=== PATIENT | female | born 1960 | race Caucasian/White ===

== ENCOUNTER 2018-09-12 08:25 | Day surgery (SDC) | payer MEDICARE, MEDICAID, SELFPAY ==
[2018-09-12] VITALS (7 sets, daily range): BP systolic 78–111; BP diastolic 41–72; PULSE 60–74; RESP 16; TEMP 36.1–36.8; O2SAT 93–98; BMI 42.9
--- NOTE | 2018-09-12 09:28 | HP.PCM_ITS ---
History of Present Illness Date of Admission: 09/12/18 The patient is a 58 year old F who presents for screening colonoscopy. Past Medical/Surgical History - Planned Operation Planned Operative Procedure/s: COLONOSCOPY Date of Operative Procedure: 09/12/18 Permit Signed: Yes S.O.S: No Is This Patient Having a Total Joint: No - Previous Hospitalizations/Surgeries HX Hospitalizations: No HX of Surgeries: HERNIA. JUDY THR. JUDY TKR. ANKLE Any Problems With Anesthesia: No You/Your Family Experience Fever (Hyperthermia) With Anes: No Cholinesterase deficiency: No - Cardiovascular Hx Chest Pain within Last 2 months: No Hx of Irregular Heartbeat and/or Afib: No Hx Heart Attack: No Hx Congestive Heart Failure: No Hx Rheumatic Fever: No Hx Hypertension: No Hx Internal Defibrillator: No Hx Pacemaker: No Hx Cardiac Catheterization: No Hx Cardiac Surgery/Stents/Etc.: No Hx Stress Test: No HX Edema: No Hx Pain in Legs when Walking/Leg Cramps: No - Respiratory Chronic Cough: No HX of Shortness of Breath: Yes Hoarseness: No Hx Chronic Obstructive Pulmonary Disease (COPD): No Hx Asthma: No Hx Emphysema: No Hx Sleep Apnea: Yes CPAP: Yes BIPAP: No Hx Oxygen Use at Home: No Hx Respiratory Tract Infection/Cold (presently): No Result (for STOP score): Positive Hx Smoking: Yes Smoking Status: Former smoker - Gastrointestinal Hx Gastroesophageal Reflux: Yes Controlled With Meds: Yes Hx Gastrointestinal Disorders: Yes - IBS Hx Gastrointestinal Bleed: No Hx Ulcer: No Hx Hiatal Hernia: No Difficulty Chewing/Swallowing: No Recent Onset of Swallowing Problems: No Special diet followed at home: No Hx Unplanned Weight Loss of 20#: No HX Unplanned Weight Gain of 20#: No - Neurological Hx Seizures: No HX Syncope/Blackout Spells/Unconsciousness: No Hx CVA/Stroke: Yes - 2005 Hx Transient Ischemic Attacks (TIA): Yes Hx Multiple Sclerosis: No Hx Parkinson's Disease: No Hx Head/Neck Injury: No Hx Headaches: No Hx Back Injury/Pain: No Recent Onset of Speech Difficulty: No Restless Legs: No Does patient have nerve stimulator: No - Blood Disorder Hx Leukemia: No Bleeding Tendencies: No Hx Deep Vein Thrombosis: No Hx High Cholesterol: No Blood Transmitted Disease: No Hx Hepatitis: No Hx Cirrhosis: No Hx Anemia: No Hx Blood Disorders: No - Reproduction : No Is Patient Lactating: No Hx Hysterectomy: No Hx Tubal Ligation: No Are You Post Menopause: Yes - Genitourinary Hx Renal Disease: No - Musculoskeletal Hx Arthritis: Yes - OA Hx Rheumatoid Arthritis: No Hx Gout: No Recent Onset of an Orthopedic Problem: No - Endocrine Hx Diabetes: No Thyroid Disease: No Hx Steroid Therapy: No - Psycho/Social Hx Substance Use: No Hx Alcohol Use: Yes - SOCIAL Hx Anxiety: Yes Hx Depression: No Mental Illness: No Hx Dementia: No - Miscellaneous Hx Cancer: No Recent Exposure to Contagious Disease: No Active MRSA: No Hx of C-Diff: No Any Loose Teeth: Yes - FULL SET DENTURES Allergies No Known Allergies Allergy (Verified 09/06/18 11:41) - Discharge Is Pt Admitted From a Long Term, or a Long Term: No Who Could Help: After D/C, Where Do you Plan to Go: Return Home - Physical Exam General: Alert, Oriented x3 Lungs: Clear to auscultation Cardiovascular: Regular rate, Regular Rhythm, No murmurs Abdomen: Bowel Sounds Present, Soft, Non Tender, Non-Distended Vital Signs Temp Pulse Resp BP Pulse Ox 97.2 F L 65 16 111/72 96 09/12/18 08:51 09/12/18 08:51 09/12/18 08:51 09/12/18 08:51 09/12/18 08:51 Oxygen Delivery Method Room Air Weight: 250 lb 0.067 oz Body Mass Index (BMI) 42.9 Assessment/Plan Plan will be to perform a colonoscopy. Surgery Risks - Colonoscopy Risks Include but are not Limited To: Risks include but are not limited to: Bleeding, perforation requiring further surgery, inability to complete colonoscopy requiring barium enema.
--- NOTE | 2018-09-12 09:30 | COLBX_PTH ---
PATIENT: BRUNO CARDONA LOC: EN U#:[id number] AGE/SX: 58/F ROOM: RE09/12/[address]: Dr. Wei Santacruz MD : 1960 BED: DIS: 09/12/2018 SPEC #: [id number] RECD: 09/12/18 10:10 STATUS: PASCUAL CHELSEA #: [id number] REX: 09/12/18 09:[address]: Wei Santacruz DEPT: SURGICAL PATHOLOGY RECD BY: Earl Guajardo ENTERED: 09/12/18 10:59 SP TYPE: COLON BX OTHR DR: Dr. Tyson Mandujano DO Tissues: Cecum, NOS Procedures: Surgery Specimen Level IV HEADER OPERATION: Colonoscopy - open access (MAC) PRE-OP DIAGNOSIS: Screening TISSUE SUBMITTED: Cecum biopsy MICROSCOPIC DIAGNOSIS Cecum polyp, biopsy: Tubular adenoma. CE:iris 09/13/18 MICROSCOPIC DESCRIPTION Slides are reviewed. GROSS DESCRIPTION Received in fixative is one container labeled with the patient's name and designated cecum polyp. The specimen consists of multiple irregular fragments of reddish-pink soft tissue and clotted blood that in aggregate measure 0.7 x 0.5 x 0.1 cm. The specimen is totally submitted in one cassette. / CE:iris 09/12/18 TC:1 CPT: 95416
--- NOTE | 2018-09-12 09:51 | OP.ENDO_ITS ---
09/12/2018 Tyson Mandujano [address] [place] [address] Re : Colonoscopy procedure for Nevin Sprague Dear Dr. Mandujano This procedure was performed on Wednesday, September 12, 2018. My impressions and recommendations are as follows: Impressions : - One 5 mm polyp in the cecum, removed with a hot snare. Resected and retrieved. - Diverticulosis in the sigmoid colon and in the descending colon. No specimens collected. - Non-bleeding internal hemorrhoids. - The examination was otherwise normal. Recommendations : - Discharge patient to home. - Resume previous diet. - Continue present medications. - Await pathology results. - Repeat colonoscopy in 3 years for surveillance. - Return to my office in 1 week. My findings are described in the full procedure note, which is enclosed. If I can be of further assistance, please feel free to contact me at Doctor phone number(s): , Fax: [phone], Work: . Sincerely, MD Wei Herrera MD 09/12/2018 9:51:50 AM This report has been signed electronically.
== END 2018-09-12 10:43 | disposition home or self-care (01) ==
LOC: EN 08:27 → AC 08:29
PROVIDERS: Family Provider Preventive Medicine Occupational Medicine; PCP Preventive Medicine Occupational Medicine; Referring Provider Surgery; Visit Provider Surgery
PROC: 0DJD8ZZ Inspection of Lower Intestinal Tract, Via Natural or Artificial Opening Endoscopic (ICD-10-PCS; CPT 45378; principal; 2018-09-12 09:25)
DX: Z12.11 Encounter for screening for malignant neoplasm of colon (principal); D12.0 Benign neoplasm of cecum; K57.30 Diverticulosis of large intestine without perforation or abscess without bleeding; K64.8 Other hemorrhoids; K58.9 Irritable bowel syndrome, unspecified; K21.9 Gastro-esophageal reflux disease without esophagitis; F41.9 Anxiety disorder, unspecified; Z78.0 Asymptomatic menopausal state; Z79.899 Other long term (current) drug therapy; Z86.73 Personal history of transient ischemic attack (TIA), and cerebral infarction without residual deficits
CPT/HCPCS: 45385; 88305; J7120; J1610

== ENCOUNTER 2019-04-02 16:38 | Emergency (ER) | payer MEDICARE, MEDICAID, SELFPAY ==
[2018-09-12 08:51] VITALS: BMI 42.9
[2019-04-02 16:39] VITALS: BP 129/71; PULSE 60; RESP 16; TEMP 36.3; O2SAT 96; BMI 44.2
--- NOTE | 2019-04-02 17:04 | ED.VIS.GEN ---
History of Present Illness Chief Complaint: Lower Extremity Injury Informant: Patient Onset: Today Context: Sudden Onset Timing: Intermittent Quality: Pain Location: Left knee Current Severity: - - Presently none Maximum Severity: Severe Worsened by: Weightbearing Relieved by: Nonweightbearing Associated Symptoms: No associated symptoms Narrative: Patient is 58-year-old woman status post bilateral total hip arthroplasty and bilateral total knee arthroplasty who presents with atraumatic left knee pain. She states was going on the carpet when she attempted place weight she had severe pain and was unable to bear weight. She states is able to extend and flex her knee. There is no history of gout or pseudogout. Surgery was performed by orthopedic surgeon in [place] in 2013. She denies any constitutional symptoms. She has no other complaints Prior similar symptoms: No Recent Illness/Hospitalization: No Past Medical History - Allergies and Home Meds Allergies/Adverse Reactions: Allergies No Known Allergies Allergy (Verified 04/02/19 16:39) Primary Care Physician: Tyson Mandujano DO [Primary Care Provider] - Prior records reviewed: No Surgical History: - - Right and left total hip arthroplasty and right and left total knee arthroplasty Lives: Spouse/ Significant Other Smoking Status: Former smoker Alcohol: None Drugs: None Review of Systems General: Denies: Chills, Fever, Malaise, Subjective Musculoskeletal: Reports: Extremity Pain. Denies: Myalgias, Arthralgias, Neck pain, Back pain, Swelling Skin: Denies: Rash, Wounds Neurological: Denies: Weakness, Parasthesia, Numbness Hematologic: Denies: Easy bruising, Easy bleeding Physical Exam Vital Signs/Narrative: Vital Signs Temp Pulse Resp BP Pulse Ox 04/02/19 16:39 97.3 F L 60 16 129/71 H 96 Inital Vital Signs reviewed: Yes General: Well nourished, Well developed, Obese, No Acute Distress Head: Normocephalic, Atraumatic. Negative for: Trauma, Tenderness Eyes: Perrl, EOMI. Negative for: Pale conjunctiva, Scleral icterus Neck: Supple, Nontender, No lymphadenopathy, No JVD Cardiovascular: Regular rate, Regular rhythm, No murmurs, Normal S1, Normal S2 Respiratory: No distress, CTA bilaterally, Chest nontender Abdomen: Soft, Nontender, Nondistended, Normal bowel sounds Back: Nontender, Normal Inspection Extremities: Nontender, No edema, - - Able to extend to 180 degrees and flex to 80 degrees. There is no significant laxity with varus valgus stress testing. Patella is not ballotable. There is no effusion. There is no erythema of the skin. Skin: Normal color, No rash, No Trauma. Negative for: Cyanosis, Diaphoresis, Jaundice Neurological: Alert, Oriented x3, Cranial nerves II-XII grossly intact, Normal Strength, Normal Sensation Diagnostic/Tx/Re-eval Chest X-Ray - ED: Read by ED Physician, - - 4 view x-ray of the left knee was obtained. Prosthesis is in proper position. There is no effusion. There is no acute findings. - Medical Decision Making Exposure was obtained to evaluate prosthetic. She was medicated with one [place] tablet. ED Disposition - Plan for ED Patient: Disposition: Home or Assisted Living Diagnosis: Left knee pain Instructions: PAIN, Uncertain Cause (Acute) Referrals: Tyson Mandujano DO [Primary Care Provider] - 3-5 Days if not improving Eric Marie DO [STAFF PHYSICIAN] - 1 Week if not improving
[2019-04-02] MEDS: HYDROcodone Bitartrate/Apap 5/325 Tablet PO (17:20)
--- NOTE | 2019-04-02 17:20 | RAD_ITS ---
STUDY: X-RAY - LEFT KNEE REASON FOR EXAM: Female, 58 years old. left knee injury, pain TECHNIQUE: 4 view(s) of the knee. COMPARISON: None. FINDINGS: Knee prosthesis is present in anatomic alignment and position. No evidence for acute fracture or subluxation. No definitive evidence for loosening of the prosthesis. RAD/Knee 4 or More Views IMPRESSION: Stable appearance to left knee prosthesis Electronically Signed: Hank Lepe MD at 17:39 EST , Service support ,
== END 2019-04-02 17:45 | disposition home or self-care (01) ==
PROVIDERS: Emergency Provider Emergency Medicine; Family Provider Preventive Medicine Occupational Medicine; PCP Preventive Medicine Occupational Medicine
DX: M25.562 Pain in left knee (principal); Z79.899 Other long term (current) drug therapy; Z87.891 Personal history of nicotine dependence; Z96.643 Presence of artificial hip joint, bilateral
CPT/HCPCS: 73564; 99282

== ENCOUNTER 2019-04-17 11:06 | Day surgery (SDC) | payer MEDICARE, MEDICAID, SELFPAY ==
--- NOTE | 2019-04-12 14:14 | EKG12_ITS ---
Test Reason : PREOP Blood Pressure : / mmHG Vent. Rate : 051 BPM Atrial Rate : 051 BPM P-R Int : 144 ms QRS Dur : 094 ms QT Int : 434 ms P-R-T Axes : 059 030 063 degrees QTc Int : 400 ms Sinus bradycardia Otherwise normal ECG Confirmed by SHIRAZ TORRES, RENEE ([id number]), editor continuity and script MARTHA VAZQUEZ ([id number]) on 04/16/2019 11:31:19 AM Referred By: Yefri Sharma Confirmed By:RENEE WELDON MD
[2019-04-12 14:35] LABS: Hematocrit 41.1 % (37-47); Hemoglobin 13.5 g/dL (12.0-15.0); Mean Corp Hgb Conc 32.8 g/dL (32-36); Mean Corpuscular Hgb 29.3 pg (27.0-32.0); Mean Corpuscular Volume 89.3 fL (81-99); Mean Platelet Vol. 9.2 fl (6.2-12.0); Platelet Count 308 K/mm3 (150-450); RBC Distribution Width CV 12.1 % (11.6-14.6); RBC Distribution Width SD 39.3 fl (35.1-43.9)
[2019-04-12 14:50] LABS: Partial Thromboplast Time 25.7 Seconds (24.1-36.2); Prothrombin Time (Protime)PT. 12.9 SECONDS (11.7-14.9)
[2019-04-12 14:59] LABS: AST(SGOT) 10 U/L (15-37); Alanine Aminotransfer ALT/SGPT 18 U/L (13-56); Albumin, Serum 3.5 g/dL (3.2-5.0); Alkaline Phosphatase 83 U/L (45-117); Anion Gap 5 (5-15); BUN 16 mg/dL (7-18); BUN/Creat Ratio 17.2 RATIO (10-20); Bilirubin, Direct 0.08 mg/dL (0.00-0.30); Calcium,Total 9.2 mg/dL (8.5-10.1); Chloride 110 mmol/L (98-107); Creatinine, Serum 0.93 mg/dL (0.55-1.02); EST Glomerular Filtration Rate 65 mL/min (>60); Est Glom Filt Rate - Afr Amer 79 mL/min (>60); Globulin 3.5 g/dL (2.2-4.2); Glucose 81 mg/dL (74-106); Potassium 4.3 mmol/L (3.5-5.1); Sodium Level 142 mmol/L (136-145)
[2019-04-17 11:24] VITALS: BP 135/72; PULSE 71; RESP 16; TEMP 37; O2SAT 98; BMI 44.8
[2019-04-17] MEDS: Lactated Ringers 1,000 ML 100 ML IV (11:35)
[2019-04-17] MEDS: Cefazolin 2 GM in 0.9% Normal Saline 100 ML IV (14:12)
--- NOTE | 2019-04-17 14:17 | DCINST_ITS ---
Discharge Diet: Light diet - advance as tolerated Discharge Activity: Return to Normal Activity Call your doctor if your incision/area has: Sudden Increased Bleeding Call your doctor if you observe: Fever of 101 or Higher, Inability to urinate Suture Line Care: Avoid Pulling/Pushing, Avoid Pinching/Bending Instructions: Stress Urinary Incontinence: Having Midurethral Sling Surgery Allergies/Adverse Reactions: Allergies No Known Allergies Allergy (Verified 04/17/19 11:23) Medications to take at Discharge Calcium Carbonate/Vitamin D3 [Calcium 500 mg-Vit D3 600 Unit] 1 ea PO DAILY 09/06/18 Omeprazole 20 mg PO DAILY 09/06/18 Sertraline HCl [Zoloft] 100 mg PO DAILY 09/06/18 cholestyramine (with sugar) 4 gram oral powder 4 g PO DAILY g 09/19/18 Hydrocodone/Acetaminophen [Hydrocodone-Acetamin 10-325 mg] 1 ea PO TID PRN PRN 04/10/19 Ciprofloxacin [Cipro] 500 mg PO BID #14 tab 04/17/19 Hydrocodone/Acetaminophen [Mcgrady 5-325 Tablet] 1 each PO Q4H PRN PRN 5 Days #10 tablet 04/17/19 The following prescriptions were given: Ciprofloxacin [Cipro] 500 mg PO BID #14 tab Transmission Status: Pending to [facility] Hydrocodone/Acetaminophen [Mcgrady 5-325 Tablet] 1 each PO Q4H PRN PRN 5 Days #10 tablet PRN Reason: Pain Or Fever Transmission Status: Sent to [facility] Primary Care Physician: Tyson Mandujano DO [Primary Care Provider] - Test Results: Test results from this visit will be discussed in further detail at your follow- up appointment, if applicable. Please Follow Up With: Yefri Sharma MD When: in 2 weeks, please call to make an appointment.
--- NOTE | 2019-04-17 14:59 | PCM.OPRPT ---
Report of Operation Date of Procedure: 04/17/19 Pre-Operative Diagnosis: Stress incontinence Post-Operative Diagnosis: Same Surgery/Procedure Performed:: Tension-free vaginal sling and cystoscopy Description of Surgical Findings:: 58-year-old female with significant stress incontinence she is failed Botox and medications and devices to treat overactive bladder on examination she has a positive leak test and has a very mobile urethra I think she has stress incontinence which will help her control of her bladder she understands it is also possible that she may need more treatments for overactive bladder and urgency of this fails to control her bladder completely. 58-year-old female taken back to the operating room at the smooth induction of general anesthesia she was placed in dorsolithotomy position with the legs high up in stirrups she underwent a vaginal prep. I then placed a Goldstein catheter in the bladder palpated the bladder neck the midline urethra. Infiltrated midline urethra with Marcaine and 1-1000 epinephrine. I then made an incision in the midline urethra then using a curved Metzenbaums dissected the space underneath the pubic bone on both the left and right side underneath the urethra to allow for the sling. Once this was done then a Goldstein catheter was placed in the bladder made a small stab incision in the abdomen and then passed a trocar for the tension-free vaginal sling top-down behind the pubic bone into the incision in the vagina this was a tension-free vaginal sling with a suprapubic approach. Once I passed the trocar on the right side then I did a cystoscopy with a 70 degree lens distended the bladder completely and there is no perforation of the bladder there is no blood. I then passed a sling up on that side. And then went to the other side and then passed the trocar top-down on the left side making sure to hug the pubic bone and coming through the vaginal incision with the trocar. Again I did a cystoscopy after the passing the trocar leaving the trocar in place distended the bladder completely used a 70 degree lens and there was no perforation of the bladder or the urethra. At this point the other side of the sling was then pulled up I then used 20 Italian sound the tightness sling up with the sound on the sling below the urethra I pulled both ends of the slings up until the urethra was right on top of the sound and the sling was above on top of the sound I then pulled the sheath off the sling that the plate and both the right and left sides came up. We then filled the bladder then another cystoscopy there was no injury to the urethra no injury in the bladder I did a Valsalva test had some minor leak so I pulled slight tension on the right side of the sling and then another Valsalva test and there was no leakage. No more tension was added to the sling it was a fairly loose sling below the urethra. Went once the sling was in place on both the left and side then I cut off the excess sling I closed the vaginal incision with a running 3-0 Vicryl close both the suprapubic incisions with 4-0 Monocryl. I drained the bladder but remove the catheter and the patient was taken back to the PACU we will do a voiding trial with the patient is able to void successfully then she will go home without a catheter if unable to will place a catheter to go home with a catheter. Minimal blood loss during the case. A tension-free vaginal sling was completed. Type of Anesthesia:: General Drains: none - Admit VTE Documentation VTE Present on Admission: No VTE Mechan Device Prophylaxis: SCD's
[2019-04-17 15:12] VITALS: BP 135/72; BP 93/42; PULSE 90; RESP 16; TEMP 36.4; O2SAT 94
[2019-04-17 15:15] VITALS: BP 135/72; BP 93/49; PULSE 86; RESP 16; O2SAT 92
[2019-04-17 15:30] VITALS: BP 107/55; BP 135/72; PULSE 83; RESP 16; O2SAT 94
[2019-04-17 15:39] VITALS: BP 114/62; BP 135/72; PULSE 72; RESP 16; TEMP 36.9; O2SAT 96
[2019-04-17 16:30] VITALS: BP 121/72; BP 135/72; PULSE 62; RESP 16; TEMP 36.7; O2SAT 94
== END 2019-04-17 16:54 | disposition home or self-care (01) ==
LOC: SDC 11:06 → AC 11:08
PROVIDERS: Anesthesiology; Family Provider Preventive Medicine Occupational Medicine; PCP Preventive Medicine Occupational Medicine; Referring Provider Urology; Visit Provider Urology
PROC: 0TJB8ZZ Inspection of Bladder, Via Natural or Artificial Opening Endoscopic (ICD-10-PCS; CPT 57288; principal; 2019-04-17 13:20)
DX: N39.3 Stress incontinence (female) (male) (principal); R35.0 Frequency of micturition; M19.90 Unspecified osteoarthritis, unspecified site; G47.30 Sleep apnea, unspecified; K21.9 Gastro-esophageal reflux disease without esophagitis; F32.9 Major depressive disorder, single episode, unspecified; E66.9 Obesity, unspecified; Z68.41 Body mass index [BMI] 40.0-44.9, adult; Z78.0 Asymptomatic menopausal state; Z79.899 Other long term (current) drug therapy; Z96.643 Presence of artificial hip joint, bilateral; Z86.73 Personal history of transient ischemic attack (TIA), and cerebral infarction without residual deficits; Z87.891 Personal history of nicotine dependence
CPT/HCPCS: 57288; 36415; 80048; 80076; 85027; 85610; 85730; 93005; J7120; C1771; J2405

== ENCOUNTER 2020-05-22 10:22 | Day surgery (SDC) | payer MEDICARE, SELFPAY ==
[2020-05-22] VITALS (9 sets, daily range): BP systolic 98–138; BP diastolic 61–68; PULSE 55–75; RESP 16; TEMP 36.6–36.9; O2SAT 97–100; BMI 42.5
[2020-05-22] MEDS: Lactated Ringers 1,000 ML 100 ML IV (10:47)
--- NOTE | 2020-05-22 11:40 | PCM.HP.STD ---
History of Present Illness Date of Admission: 05/22/20 Chief Complaint: Urge incontinence The patient is a 59 year old female with a history of a sling in the past but she still has significant urge incontinence is failed medical therapy we talked about third line option therapies including InterStim therapy peripheral neuromodulation and Botox therapy. We can proceed with Botox therapy today. Past Medical History Medical History: Medical History (Last Updated 09/19/18 @ 09:07 by Matilda Queen) CVA (cerebral vascular accident) I63.9 GERD (gastroesophageal reflux disease) K21.9 History of colon polyps Z86.010 History of depression Z86.59 Allergies No Known Allergies Allergy (Verified 05/15/20 13:55) Home Medications: Ambulatory Orders Medication Instructions Recorded Calcium Carbonate/Vitamin D3 1 ea PO DAILY 09/06/18 [Calcium 500 mg-Vit D3 600 Unit] Omeprazole 20 mg PO DAILY 09/06/18 Sertraline HCl [Zoloft] 100 mg PO DAILY 09/06/18 Hydrocodone/Acetaminophen 1 ea PO TID 04/10/19 [Hydrocodone-Acetamin 10-325 mg] Mirabegron [Myrbetriq] 50 mg PO DAILY 05/15/20 Oxybutynin Chloride [Oxybutynin 10 mg PO DAILY 05/15/20 Chloride ER] Surgical History: Surgical History (Last Updated 09/19/18 @ 09:07 by Matilda Queen) History of colonoscopy Onset Date: ~08/2018 Z98.890 History of total bilateral knee replacement Z96.653 History of ventral hernia repair Z98.890, Z87.19 Status post ORIF of fracture of ankle Z98.890, Z87.81 Status post bilateral total hip replacement Z96.643 Surgical History: - - Right and left total hip arthroplasty and right and left total knee arthroplasty Smoking Status: Former smoker Tobacco Use: Non-smoker Review of Systems Constitutional: Denies: Chills, Fever, Weight Change HEENT: Denies: Head Aches, Sinus Congestion, Sinus Drainage Cardiovascular: Denies: Chest Pain, Palpitations Respiratory: Denies: Cough, Shortness of breath at rest, Sputum production Gastrointestinal: Denies: Abdominal Pain, Nausea, Vomiting Genitourinary: Denies: Dysuria Musculoskeletal: Denies: Joint Pain, Joint Tenderness Skin: Denies: Rash, Wounds Neurological: Denies: Numbness, Tingling, Focal weakness Psychiatric: Denies: Anxiety, Depression, Homicidal Ideations, Suicidal Ideations Hematologic/ Lymphatic: Denies: Easy Bruising, Easy Bleeding VTE Information - Inpt Only VTE Present on Admission: No - Physical Exam Vitals/I&O's: Vital Signs Temp Pulse Resp BP Pulse Ox 97.9 F 55 L 16 138/68 H 97 05/22/20 10:47 05/22/20 10:47 05/22/20 10:47 05/22/20 10:47 05/22/20 10:47 Oxygen Delivery Method Room Air Weight: 112.5 kg Body Mass Index (BMI) 42.5 General: Alert, Oriented x3, Cooperative HEENT: Atraumatic, PERRLA, EOMI, Normocephalic Neck: Supple, No JVD, Negative Carotid Bruits Lungs: Clear to auscultation, Normal air movement Cardiovascular: Regular rate, No murmurs Abdomen: Bowel Sounds Present, Soft, Non Tender Extremities: No edema, Capillary Refill Less than 3 Seconds Skin: No rashes, No breakdown Musculoskeletal: No Tenderness to Palpation of Joints or Extremities Neurological: Cranial nerves II-XII grossly intact Psych/Mental Status: Normal Affect, Appropriate Microbiology Past 72 Hours 05/21/20 10:40 Interface Orders SARS-CoV-2 Antigen (Rapid) - Final Current Medications Botulinum Toxin Type A (Botulinum Toxin A 100 Units/Vial Vial) 100 units IJ X1 ONE Stop: 05/22/20 12:16 Cefazolin Sodium 2 gm/ Sodium (Chloride) 110 mls @ 150 mls/hr IV PREOP ONE Stop: 05/22/20 12:58 Lactated Ringer's () 1,000 mls @ 100 mls/hr IV .Q10H LAURA Last Admin: 05/22/20 10:47 Dose: 100 mls/hr Documented by: Assessment/Plan Plan to proceed with Botox therapy today in the operating room.
--- NOTE | 2020-05-22 11:42 | DCINST_ITS ---
Discharge Diet: Light diet - advance as tolerated Discharge Activity: Return to Normal Activity Allergies/Adverse Reactions: Allergies No Known Allergies Allergy (Verified 05/15/20 13:55) Medications to take at Discharge Calcium Carbonate/Vitamin D3 [Calcium 500 mg-Vit D3 600 Unit] 1 ea PO DAILY 09/06/18 Omeprazole 20 mg PO DAILY 09/06/18 Sertraline HCl [Zoloft] 100 mg PO DAILY 09/06/18 Hydrocodone/Acetaminophen [Hydrocodone-Acetamin 10-325 mg] 1 ea PO TID 04/10/19 Mirabegron [Myrbetriq] 50 mg PO DAILY 05/15/20 Oxybutynin Chloride [Oxybutynin Chloride ER] 10 mg PO DAILY 05/15/20 Primary Care Physician: Tyson Mandujano DO [Primary Care Provider] - Test Results: Test results from this visit will be discussed in further detail at your follow- up appointment, if applicable. Please Follow Up With: Yefri Sharma MD When: in 2 weeks, please call to make an appointment.
[2020-05-22] MEDS: Cefazolin 2 GM in 0.9% Normal Saline 100 ML IV (12:03)
--- NOTE | 2020-05-22 12:22 | PCM.OPRPT ---
Report of Operation Date of Procedure: 05/22/20 Pre-Operative Diagnosis: Urge incontinence Post-Operative Diagnosis: Same Surgery/Procedure Performed:: Cystoscopy injection of Botox into the bladder 100 units Description of Surgical Findings:: Patient has a history of an overactive bladder which is failed conservative measures and medical therapy. Today the patient presents to the hospital for an injection of Botox into the bladder. The patient understands the risk of the procedure involved bleeding, infection, paralytic bladder and failure to empty the bladder. The possibility of needing a catheter or self intermittent catheterization of the bladder is not able to function properly. The risk of infection and bleeding and the risk of anesthesia was discussed with the patient. Patient signed the consent form and we proceeded to the operating room. Patient was taken back to the operating room after induction of anesthesia, the patient was placed supine on the table in the legs were placed in dorsolithotomy position. The genitals and urethra were prepped and draped in usual sterile fashion. Using a 21 [place] offset cystoscope I went into the bladder via the urethra. The bladder was inspected. The trigone was normal. The left and right ureter orifice were identified. On the back table the Botox medication was prepared per the land survey technician's instruction, a total of 100 units of Botox were prepared. We then used a Botox needle through the cystoscope and then injected 0.5 cc of Botox solution into each site going through a matrix pattern in the back of the bladder to inject about every centimeter across the back of the bladder in several layers avoiding the trigone. After a total of 100 units of Botox was injected into the bladder there was minimal bleeding. The bladder was drained. The patient's anesthetic was reversed and the patient was taken back to the PACU in stable condition. Type of Anesthesia:: Local MAC - Admit VTE Documentation VTE Present on Admission: No VTE Mechan Device Prophylaxis: SCD's
== END 2020-05-22 13:34 | disposition home or self-care (01) ==
LOC: SDC 10:23 → AC 10:23
PROVIDERS: PCP Preventive Medicine Occupational Medicine; Referring Provider Urology; Visit Provider Urology
PROC: 3E0K8GC Introduction of Other Therapeutic Substance into Genitourinary Tract, Via Natural or Artificial Opening Endoscopic (ICD-10-PCS; CPT 52287; principal; 2020-05-22 12:15)
DX: N39.41 Urge incontinence (principal); N32.81 Overactive bladder; Z20.822 Contact with and (suspected) exposure to COVID-19; M19.90 Unspecified osteoarthritis, unspecified site; K58.9 Irritable bowel syndrome, unspecified; G47.30 Sleep apnea, unspecified; K21.9 Gastro-esophageal reflux disease without esophagitis; F32.9 Major depressive disorder, single episode, unspecified; Z79.899 Other long term (current) drug therapy; Z86.73 Personal history of transient ischemic attack (TIA), and cerebral infarction without residual deficits; Z87.19 Personal history of other diseases of the digestive system; Z87.891 Personal history of nicotine dependence; Z96.653 Presence of artificial knee joint, bilateral; Z96.643 Presence of artificial hip joint, bilateral
CPT/HCPCS: 00910; 52287; 87426; C9803; J7120; J0585

== ENCOUNTER 2020-07-02 13:01 | Emergency (ER) | payer MEDICARE, SELFPAY ==
[2020-05-22 10:47] VITALS: BMI 42.5
[2020-07-02 13:02] VITALS: BP 130/61; PULSE 87; RESP 17; TEMP 36.4; O2SAT 95; BMI 42.9
--- NOTE | 2020-07-02 13:16 | RAD_ITS ---
STUDY: X-RAY CHEST REASON FOR EXAM: Female, 60 years old. cough TECHNIQUE: Single AP portable view of the chest. COMPARISON: None. FINDINGS: There is hyperinflation of the lungs consistent with chronic obstructive lung disease (COPD). There is no demonstrated pleural abnormality. Normal size heart. Normal mediastinum and marie. Normal visualized pulmonary arteries. Normal visualized aortic arch and descending thoracic aorta. Normal visualized thoracic spine. Normal visualized ribs, clavicles, and shoulders. There is no demonstrated abnormality of the visualized soft tissue structures of the upper abdomen. RAD/Chest 1 View (Portable) IMPRESSION: Emphysema without pneumonia or atelectasis per Electronically Signed: Mikel Taylor MD at 14:26 EDT Tel , Service support ,
--- NOTE | 2020-07-02 13:17 | ED.VISSUMM ---
- ER Visit Summary Date of Service: 07/02/20 Chief Complaint: [Not feeling well] History of Present Illness: The patient is a 60 F [presents to the emergency department with complaint of not feeling well for the last 4 days. Patient states that food just does not taste right. Patient states that she is having frequent diarrhea more than 10 times per day. She denies any vomiting. She describes headaches off and on. Patient's had a cough with some slight phlegm production. Patient states that she has arthritis and always has body aches. She is not sure if she is had a fever but she has had some chills and some sweats. Patient denies any Covid exposures. She has not had Covid and she is not been immunized against Covid. Past medical history includes prior stroke and history of GERD.] Physical Examination: [HEENT-PERRLA, EOMI. Cranial nerves II through XII grossly intact. TMs clear. Mucous membranes moist. No adenopathy. Cardiovascular-regular rate and rhythm without murmur or ectopy Lungs-clear to auscultation, chest wall stable without crepitus or subcu emphysema Abdomen-normoactive bowel sounds, soft, nontender, no rebound or rigidity, no peritoneal signs. Extremities-intact ?4, normal range of motion, normal pulses, atraumatic] Test Results: [EKG obtained arrival shows sinus rhythm with a ventricular rate of 69 bpm with no acute ST segment changes noted. CBC with differential obtained showed a low white blood cell count of 4.1 otherwise was unremarkable. Chemistries unremarkable. Troponin was less than 0.015. COVID-19 rapid test was positive. Chest x-ray 1 view obtained interpreted by myself as no acute disease process. Radiology read it as no acute disease process but did note some emphysema changes. CTA of the chest obtained after elevated D-dimer was found over 3. CTA was read as no evidence of PE or dissection. She did have bilateral areas of pneumonitis which would be consistent with COVID-19 infection.] Emergency Department Course and Treatment: [IV line established on arrival. Patient was given normal saline. I did call the hotline for the monoclonal antibody treatment and made referral for her to be contacted.] Treatment Plan: [Discharged home with instructions to return if increasing shortness of breath or condition should worsen anyway.] Disposition: [Discharged home in stable condition] Impression: [COVID-19 URI Viral syndrome] This note was generated with [employer] dictation software. It may contain incorrect words, spelling, and punctuation that were not noted in review of the chart prior to signing ED Disposition - Plan for ED Patient: Referrals: Tyson Mandujano DO [Primary Care Provider] -
[2020-07-02] MEDS: 0.9% Normal Saline 1,000 ML 1000 ML IV (13:31)
[2020-07-02 13:36] LABS: Absolute Lymphocyte Count 0.52 X10^3/uL (0.83-4.51); Absolute Neutrophil Count 1.8 X10^3/uL (2.0-7.7); Basophil# 0.01 X10^3/uL; Basophil% 0.4 % (0-1); Eosinophil# 0.01 X10^3/uL; Eosinophils% 0.4 % (0-5); Hematocrit 42.2 % (37-47); Hemoglobin 13.8 g/dL (12.0-15.0); Lymphocyte # 0.52 X10^3/ul (4.0); Lymphocyte % 19.3 % (19-41); Mean Corp Hgb Conc 32.7 g/dL (32-36); Mean Corpuscular Hgb 29.1 pg (27.0-32.0); Mean Corpuscular Volume 88.8 fL (81-99); Mean Platelet Vol. 9.2 fl (6.2-12.0); Monocyte# 0.31 X10^3/uL; Monocyte% 11.5 % (0-10); NRBC Flagged by Analyzer 0 % (0-5); Neutrophil # 1.83 X10^3/uL (2.7-7.7); POSITIVE DIFFERENTIAL YES; Platelet Count 182 K/mm3 (150-450); RBC Distribution Width CV 12.5 % (11.6-14.6); RBC Distribution Width SD 40.2 fl (35.1-43.9); Red Blood Count 4.75 M/mm3 (4.2-5.4); White Blood Count 2.7 K/mm3 (4.4-11.0)
[2020-07-02 13:39] LABS: Differential Indicated SCAN CRITERIA MET
[2020-07-02 13:47] LABS: Anion Gap 6 (5-15); BUN 9 mg/dL (7-18); BUN/Creat Ratio 9.8 RATIO (10-20); Calcium,Total 8.6 mg/dL (8.5-10.1); Chloride 106 mmol/L (98-107); Creatinine, Serum 0.92 mg/dL (0.55-1.02); EST Glomerular Filtration Rate 66 mL/min (>60); Est Glom Filt Rate - Afr Amer 79 mL/min (>60); Estimated Creatinine Clearance 54.75 ml/min; Glucose 84 mg/dL (74-106); Potassium 3.5 mmol/L (3.5-5.1); Sodium Level 138 mmol/L (136-145)
[2020-07-02 14:04] LABS: Differential Comment SCANNED
--- NOTE | 2020-07-02 14:28 | EKG12_ITS ---
Test Reason : CP Blood Pressure : / mmHG Vent. Rate : 069 BPM Atrial Rate : 069 BPM P-R Int : 122 ms QRS Dur : 096 ms QT Int : 408 ms P-R-T Axes : 057 -02 045 degrees QTc Int : 437 ms Normal sinus rhythm Possible Inferior infarct , age undetermined Abnormal ECG Confirmed by SHIARZ TORRES, RENEE ([id number]), newspaper managing editor MARTHA VAZQUEZ ([id number]) on 07/06/2020 2:19:54 PM Referred By: PATRICK Confirmed By:RENEE WELDON MD
[2020-07-02 14:31] VITALS: PULSE 72; RESP 18; O2SAT 97
[2020-07-02 15:02] LABS: D-Dimer Quantitative (DVT/PE) 3.51 FEU/ug/m (0.27-0.49)
--- NOTE | 2020-07-02 15:10 | CT_ITS ---
STUDY: CTA CHEST REASON FOR EXAM: Female, 60 years old. chest pain, elevated d-dimer RADIATION DOSAGE (If Supplied By Facility): CTDIvol = ( 16.22 ) mGy, DLP = ( 489.59 ) mGycm TECHNIQUE: The examination was performed with the intravenous administration of IV 100mL Isovue-370. Post-processing of the angiographic images was performed, with multiplanar reformation and 3D reconstruction. Individualized dose optimization techniques were used for this CT. COMPARISON: None. FINDINGS: Normal enhancement of the main pulmonary artery and right and left pulmonary arteries. Normal enhancement of the bilateral peripheral pulmonary arteries. There is no demonstrated pulmonary embolism. Normal thoracic aorta and visualized great vessels. There is no demonstrated aortic dissection. Normal heart and pericardium. Normal mediastinum. Normal hilar regions. Normal visualized trachea and bronchi. The lungs are well expanded. Bilateral patchy groundglass opacities consistent with subsegmental atelectasis or pneumonitis. Normal pleura. Normal chest wall structures. Normal osseous structures. Normal visualized upper abdomen. CT/CTA Chest W/WO Contrast IMPRESSION: 1. No CT evidence of pulmonary embolism. 2. Bilateral subsegmental atelectasis or pneumonitis. Imaging features can be seen with Covid 19 pneumonia, though are nonspecific and can occur with a variety of infectious and noninfectious processes. Electronically Signed: Mikel Taylor MD at 16:21 EDT Tel , Service support ,
[2020-07-02 16:27] VITALS: BP 135/63; PULSE 65; RESP 14; TEMP 38; O2SAT 96
--- NOTE | 2020-07-02 16:35 | ED.DEP ---
ED Disposition - Plan for ED Patient: Instructions: Coronavirus Disease 2019 (COVID-19): Overview, Coronavirus Disease 2019 (COVID-19): Caring for Yourself or Others Referrals: Tyson Mandujano DO [Primary Care Provider] - 5-7 Days
[2020-07-02 16:41] LABS: Color, Urine Yellow (Yellow); Glucose, Dipstick Normal (Normal); Ketone-Dipstick Negative (Negative); Leukocyte Esterase-Dipstick 25 /ul (Negative); Nitrite-Dipstick Negative (Negative); Occult Blood-Urine 10 /ul (Negative); Protein-Dipstick Negative (Negative); Specific Gravity, Urine 1.005 (1.002-1.030); Urine Bilirubin Dipstick Negative (Negative); Urine Clarity Clear (Clear); Urine Urobilinogen Normal (Normal)
[2020-07-02] MEDS: Acetaminophen 325 MG Tablet 650 MG PO (16:48)
[2020-07-02 16:54] VITALS: BP 123/59; PULSE 67; RESP 18; O2SAT 99
[2020-07-03 13:10] LABS: Pathologist Review Reviewed
== END 2020-07-02 17:50 | disposition home or self-care (01) ==
LOC: ED 13:22
PROVIDERS: Emergency Provider Emergency Medicine; PCP Preventive Medicine Occupational Medicine
DX: U07.1 COVID-19 (principal); R19.7 Diarrhea, unspecified; M19.90 Unspecified osteoarthritis, unspecified site; K21.9 Gastro-esophageal reflux disease without esophagitis; Z79.899 Other long term (current) drug therapy; Z86.73 Personal history of transient ischemic attack (TIA), and cerebral infarction without residual deficits
CPT/HCPCS: 71045; 71275; 80048; 81002; 84484; 85025; 85379; 87040; 87426; 88305; 93005; 96360; 96361; 99283; J7030; Q9967

== ENCOUNTER 2020-07-03 14:59 | Outpatient (CLI) | payer MEDICARE, SELFPAY ==
[2020-07-03] VITALS (11 sets, daily range): BP systolic 89–121; BP diastolic 52–69; PULSE 74–89; RESP 18–20; TEMP 37.2–39.3; O2SAT 93–96; BMI 42.9; BMI 44.2
[2020-07-03] MEDS: 0.9% Saline Lock 10 ML Syringe IV (15:15)
[2020-07-03] MEDS: Acetaminophen 325 MG Tablet 650 MG PO (15:31)
== END 2020-07-03 18:12 | disposition home or self-care (01) ==
LOC: ICUOUT 15:00 → MS2 15:01 → ICU 15:15
PROVIDERS: PCP Preventive Medicine Occupational Medicine; Visit Provider Nurse Practitioner Acute Care
DX: U07.1 COVID-19 (principal)
CPT/HCPCS: J7050; M0243; A4216; Q0240

== ENCOUNTER 2020-11-25 12:05 | Day surgery (SDC) | payer MEDICARE, SELFPAY ==
[2020-07-03 15:06] VITALS: BMI 44.2
[2020-11-25] VITALS (8 sets, daily range): BP systolic 120–134; BP diastolic 66–80; PULSE 44–76; RESP 16; TEMP 36.3–37; O2SAT 93–100; BMI 44.4
[2020-11-25] MEDS: Cefazolin 2 GM in 0.9% Normal Saline 100 ML IV (15:32)
[2020-11-25] MEDS: 0.9% Normal Saline (Pres. free 10 ML Vial (15:38)
[2020-11-25] MEDS: Lidocaine Jelly 2% 20 ML Syringe (URO-JET) 20 APPLIC (15:40)
--- NOTE | 2020-11-25 15:50 | PCM.DC ---
Discharge Instructions Diet Discharge Diet: No restrictions Activity Discharge Activity: Return to Normal Activity and May Not Drive (while taking narcotic pain medications.) Dressing / Incision Call your doctor if you observe: Fever of 101 or Higher Follow Up Care Please Follow Up With: Yefri Sharma MD When: Call [phone] for an appointment Test Results: Test results from this visit will be discussed in further detail at your follow-up appointment, if applicable. Discharge Plan Admission Primary Reason for Your Visit: botox injection Attending Provider: Yefri Sharma Primary Care Provider: Tyson Mandujano Discharge Orders/Prescriptions Prescriptions: Continued sertraline 100 MG tablet 100 mg PO DAILY RF: 0 omeprazole 20 MG tablet,delayed release (DR/EC) 20 mg PO DAILY RF: 0 calcium carbonate-vitamin D3 1 EACH tablet 1 each PO DAILY RF: 0 oxycodone-acetaminophen 1 EACH tablet 1 each PO TID PRN (Reason: Pain Score 1-10) RF: 0 Referrals / Follow Up: Yefri Sharma MD [STAFF PHYSICIAN] - Tyson Mandujano DO [Primary Care Provider] - Disposition Disposition (needs filled in before D/C Order can be placed): Home, Self Care
--- NOTE | 2020-11-25 15:50 | PCM.OPRPT ---
Report of Operation Date of Procedure: 11/25/20 Pre-Operative Diagnosis: Urge incontinence Post-Operative Diagnosis: Same Surgery/Procedure Performed:: Cystoscopy injection of Botox 100 units Description of Surgical Findings:: Patient has a history of an urge incontinence which is failed conservative measures and medical therapy. Today the patient presents to the hospital for an injection of Botox into the bladder. The patient understands the risk of the procedure involved bleeding, infection, paralytic bladder and failure to empty the bladder. The possibility of needing a catheter or self intermittent catheterization of the bladder is not able to function properly. The risk of infection and bleeding and the risk of anesthesia was discussed with the patient. Patient signed the consent form and we proceeded to the operating room. Patient was taken back to the operating room after induction of anesthesia, the patient was placed supine on the table in the legs were placed in dorsolithotomy position. The genitals and urethra were prepped and draped in usual sterile fashion. Using a 21 [place] offset cystoscope I went into the bladder via the urethra. The bladder was inspected. The trigone was normal. The left and right ureter orifice were identified. On the back table the Botox medication was prepared per the registered massage therapist's instruction, a total of 100 units of Botox were prepared. We then used a Botox needle through the cystoscope and then injected 0.5 cc of Botox solution into each site going through a matrix pattern in the back of the bladder to inject about every centimeter across the back of the bladder in several layers avoiding the trigone. After a total of 100 units of Botox was injected into the bladder there was minimal bleeding. The bladder was drained. The patient's anesthetic was reversed and the patient was taken back to the PACU in stable condition.
== END 2020-11-25 16:59 | disposition home or self-care (01) ==
LOC: SDC 12:06 → AC 12:10
PROVIDERS: PCP Preventive Medicine Occupational Medicine; Referring Provider Urology; Visit Provider Urology
PROC: 3E0K8GC Introduction of Other Therapeutic Substance into Genitourinary Tract, Via Natural or Artificial Opening Endoscopic (ICD-10-PCS; CPT 52287; principal; 2020-11-25 14:20)
DX: N39.41 Urge incontinence (principal); N32.81 Overactive bladder; F32.9 Major depressive disorder, single episode, unspecified; K21.9 Gastro-esophageal reflux disease without esophagitis; M19.90 Unspecified osteoarthritis, unspecified site; Z86.73 Personal history of transient ischemic attack (TIA), and cerebral infarction without residual deficits; Z87.19 Personal history of other diseases of the digestive system; Z86.010 Personal history of colon polyps; Z79.899 Other long term (current) drug therapy
CPT/HCPCS: 00910; 52287; 87426; C9803; J7120; J0585; J2405; J3490

== ENCOUNTER 2021-03-31 11:54 | Emergency (ER) | payer MEDICARE, SELFPAY ==
[2021-03-31] VITALS (10 sets, daily range): BP systolic 107–141; BP diastolic 40–92; PULSE 57–73; RESP 13–22; TEMP 36.6; O2SAT 95–100; BMI 46.0
--- NOTE | 2021-03-31 12:35 | RAD_ITS ---
STUDY: X-RAY - LEFT WRIST REASON FOR EXAM: Female, 60 years old. FALL -- IN WAITING ROOM TECHNIQUE: 3 view(s) of the wrist were obtained. COMPARISON: None. FINDINGS: Comminuted fracture of the distal radial metaphysis with extension to the articular surface. Dorsal facing. Avulsion fracture of the ulnar styloid. There is degenerative arthrosis of the radiocarpal articulation. Normal distal radioulnar articulation. Normal carpal bones. Normal carpal articulations. There is degenerative arthrosis of the carpometacarpal articulation of the thumb. Normal second through fifth carpometacarpal articulations. Normal visualized metacarpal bones. Soft tissue swelling. RAD/Wrist min 3 Views IMPRESSION: Comminuted fracture of the distal metaphysis with extension to the articular surface. Dorsal facing. A long fracture of the ulnar styloid. Electronically Signed: Landon Mott MD at 12:46 EST , Service support ,
--- NOTE | 2021-03-31 14:49 | EX.ED.UPPERE ---
HPI History of Present Illness HPI Narrative: Tripped and fell in her driveway injuring her left wrist. Chief Complaint: Upper Extremity Injury Informant: patient and family Onset/Context/Timing Onset: Today and Hours Context: Sudden Onset Timing: Continuous Quality of Pain: Sharp Current Severity: Moderate Maximum Severity: Moderate Associated Symptoms Associated Symptoms: Negative for Parasthesia, Weakness and Loss of Funtion Narrative Narrative: 60-year-old female is on Percocet for her chronic hip and leg pain. She has had both wrist working in the past. She is right-hand dominant. Today around 11:45 in the morning she was in her driveway tripped fell try to catch herself and injured her left wrist. Denies hitting her head. No LOC. No blood thinners. She denies any other injuries. Complaining of left wrist pain. Prior similar symptoms: Yes Recent Illness/Hospitalization: No PFSH PFSH Medical History Alcohol use Arthritis Back pain Bladder disease Cardiology follow-up encounter CPAP (continuous positive airway pressure) dependence CVA (cerebral vascular accident) Former smoker GERD (gastroesophageal reflux disease) History of colon polyps History of depression History of edema History of IBS History of stress test Wears dentures Wears glasses Home Medications calcium carbonate-vitamin D3 1 each PO DAILY 09/06/18 [History Last Taken 07/01/20] omeprazole 20 mg PO DAILY 09/06/18 [History Last Taken 11/25/20] sertraline 100 mg PO DAILY 09/06/18 [History Last Taken 07/01/20] oxycodone-acetaminophen 1 each PO TID PRN 07/02/20 [History Last Taken 06/27/20] Allergy/AdvReac Type Severity Reaction Status Date / Time No Known Allergies Allergy Verified 03/31/21 11:56 Family History Sister Cancer lung Surgical History History of cardiac catheterization History of colonoscopy (~08/2018) History of total bilateral knee replacement History of ventral hernia repair Hx of cystoscopy Status post bilateral total hip replacement Status post ORIF of fracture of ankle Social History Smoking Status: Former smoker ROS ROS ED ROS Narrative Denies recent illness. 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 Review of Systems ROS Unobtainable: Denies due to encephalopathy Constitutional Constitutional ED: Denies fever(s) Eyes Eyes: Denies change in vision ENT ENT ED: Denies ear pain Cardiovascular Cardiovascular: Denies chest pain Respiratory/Chest Respiratory/Chest: Denies cough or dyspnea Gastrointestinal Gastrointestinal: Reports diarrhea; Denies abdominal pain, nausea or vomiting Genitourinary Genitourinary ED: Denies dysuria Musculoskeletal Musculoskeletal: Denies myalgias Integumentary Denies rash Neurologic Neurologic: Denies headache(s) Psychiatric Psychiatric: Denies depression Endocrine Endocrinology: Denies polyuria Hematologic/Lymphatic Hematologic/Lymphatic: Denies easy bruising Allergic/Immunologic Allergic/Immunologic ED: Denies urticaria EXAM Physical Exam Narrative Exam Narrative: 60-year-old female no acute distress. Vital signs are stable and afebrile. Pulse ox 90% room air no signs hypoxia. HEENT exam atraumatic nontender. Pupils are reactive light. Scalp nontender. C-spine nontender trachea midline. Lungs clear to auscultation bilaterally. Chest wall nontender. Heart regular rhythm rate about 60 no murmur. Abdomen soft nontender normal bowel sounds no peritoneal signs. Back and spine nontender. Pelvic girdle intact. Hips are nontender. No rotation, shortening or deformity. She is able to flex and in both hips knees and ankles. Dorsi plantarflexion intact. Nontender. Right upper extremity is nontender with normal range of motion. Left shoulder elbow nontender. Left wrist is deformed tender with obvious fracture. Skin is intact. Radial pulses intact. She is able to wiggle her fingers. She has multiple rings on which was removed. Skin is intact. Touch sensation is intact. Neurologically she is awake and alert with no focal deficits. Const Vital Signs: 03/31/21 11:55 03/31/21 14:38 Temperature 97.9 F Temperature Source Temporal Pulse Rate 57 L Respiratory Rate 18 22 H Blood Pressure 141/61 H Blood Pressure Mean 87 Pulse Ox 100 Oxygen Delivery Method Room Air Positive well nourished, well developed and obese; Negative for cachectic, contractures or unkempt General Appearance ED: well developed and NAD; Negative for unkempt, cachectic, contractures, cyanotic or diaphoretic Nutritional Appearance: obese; Negative for cachectic HEENT Reports moist mucous membranes normocephalic and atraumatic; Negative for trauma or tenderness Eyes PERRL and EOMs intact bilaterally Neck full ROM and supple General: Negative for tenderness Chest Wall inspection of chest normal and palpation of chest normal Resp normal respiratory effort and clear to auscultation bilaterally Effort and Inspection: Negative for pain with movement Auscultation: Negative for rales, rhonchi or wheezes Cardio regular rate, regular rhythm, S1 normal heart sound, S2 normal heart sound and no murmurs GI non-tender, non-distended and no masses Inspection: Negative for abdominal distention Auscultation: normoactive bowel sounds Palpation: soft; Negative for tender, guarding or rebound tenderness present Back/Spine no CVA tenderness General Back: Negative for CVA tenderness Cervical Spine: Negative for cervical spine tenderness Thoracic Spine / Upper Back: Negative for thoracic spinal tenderness Lumbar Spine / Lower Back: Negative for lumbar spinal tenderness Extremity normal to inspection and full ROM Extremity Narrative: Except tenderness and deformity of the left wrist. Skin intact. Left hand neurovascularly intact. General Extremety ED: Negative for edema General Extremity: Negative for edema Neuro oriented x3 and moves all extremities Sensorium / Orientation: alert, oriented to person, oriented to place and oriented to time; Negative for orientation impaired, lethargic or stuporous Motor Exam: strength 5/5 throughout Psych mental status grossly normal Appearance: Negative for unkempt Mood & Affect: Negative for depressed or tearful Skin Lesions: no lesions Rashes: no rashes Trauma: no lacerations or abrasions MDM MDM MDM Narrative Medical decision making narrative: 60-year-old fell as a closed comminuted left wrist fracture. Should be treated with IV morphine and Zofran. X-rays already been obtained which I reviewed the radiologist is also read. She will be placed in a short arm AP splint. She wants to follow-up with a orthopedic physician she already seen in the past he has Chris Redman. Discussed with patient and son at bedside. Patient was set up for conscious sedation. She has had nothing to eat all day. She had no problem with anesthesia in the past. She had oxygen on and was monitored entire time with 2 RNs present in the room. She was given initially 50 and a total of 90 of propofol. I then reduced the left wrist fracture and placed her in a short arm well-padded AP Ortho-Glass splint that I fabricated. Patient tolerated procedure well. She is already waking up and talking to us. Her vital signs and pulse ox stayed stable the entire time. She will follow up with orthopedic physicians she is seen in the past and is calling their office and has Percocet at home for pain. Lab Data Labs: Left wrist x-ray shows a distal radius comminuted fracture involving the articular surface and an ulnar styloid fracture. 3 views interpreted both by myself and the radiologist. Radiography Diagnostic Testing: Clinical Impression(s) from Imaging Studies Wrist X-Ray 03/31/21 12:35 IMPRESSION: Comminuted fracture of the distal metaphysis with extension to the articular surface. Dorsal facing. A long fracture of the ulnar styloid. Electronically Signed: Landon Mott MD at 12:46 EST , Service support , Procedures Upper Extremity Splints Upper Extremity Splint: Orthoglass and Sling Splint Fabrication: Fabricated Location: Left Discharge Plan Triage Chief Complaint: Upper Extremity Injury ED Provider: Adrian Rodas Dx/Rx/DC Orders Clinical Impression: Fall, Fracture of left wrist Instructions: ED Fracture, Wrist, General Prescriptions: No Action sertraline 100 MG tablet 100 mg PO DAILY RF: 0 omeprazole 20 MG tablet,delayed release (DR/EC) 20 mg PO DAILY RF: 0 calcium carbonate-vitamin D3 1 EACH tablet 1 each PO DAILY RF: 0 oxycodone-acetaminophen 1 EACH tablet 1 each PO TID PRN (Reason: Pain Score 1-10) RF: 0 Primary Care Provider: Tyson Mandujano Referrals: Tyson Mandujano DO [Primary Care Provider] - Activity Restrictions/Additional Instructions: Ice and elevate your left wrist to decrease pain and swelling. Use your own Percocet for pain. Keep the splint dry and clean. Sling if you are up and around. Call and follow-up with your orthopedic physician in [place], [place] as soon as possible. Disposition Disposition: Home, Self Care
[2021-03-31] MEDS: Ondansetron 4 MG/2 ML Vial IV (14:58)
[2021-03-31] MEDS: morphine 8 MG/ML Syringe IV (14:59)
[2021-03-31] MEDS: Propofol 200 MG/20 ML Vial 60 MG IV BOLUS (16:04)
[2021-03-31] MEDS: morphine 8 MG/ML Syringe 6 MG IV (16:19)
== END 2021-03-31 16:38 | disposition home or self-care (01) ==
LOC: ED 16:19
PROVIDERS: Emergency Provider Emergency Medicine; PCP Preventive Medicine Occupational Medicine; Visit Provider Emergency Medicine
DX: S62.92XA Unspecified fracture of left hand, initial encounter for closed fracture (principal); W01.0XXA Fall on same level from slipping, tripping and stumbling without subsequent striking against object, initial encounter; Z87.891 Personal history of nicotine dependence
CPT/HCPCS: 29126; 29125; 73110; 96374; 96375; 96376; 99152; 99283; J7030; A4216; J2405